=== PATIENT | female | born 1995 | race Caucasian/White ===

== ENCOUNTER 2018-09-10 03:01 | Emergency (ER) | payer OTHER ==
[2018-09-10] MEDS ORDERED: DEXAMETHASONE 4 MG TABLET PO ONE (04:50)
[2018-09-10] MEDS ORDERED: HYDROCODONE/ACETAMINOPHEN 7.5-325 MG TABLET PO ONE (04:50)
[2018-09-10] MEDS ORDERED: ONDANSETRON 4 MG TAB.RAPDIS PO ONE (04:50)
--- NOTE | 2018-09-10 04:54 | ER Document Report ---
HPI - HPI Patient complains to provider of: sore throat Time Seen by Provider: 09/10/18 03:51 Pain Level: 4 Context: Patient is a 22-year-old female presents to the emergency department with generalized sore throat, cough, congestion, nausea, body aches, subjective fever for the last 24 hours. Patient states she did present to an urgent care today and had a negative strep test and a negative flu test. Patient states she was given a prescription for prednisone and amoxicillin. States she was given amoxicillin because her throat was "really red." Patient states she has not taken any [id number] Tylenol or Motrin for her generalized body aches. Patient states she has not taken any of the prednisone but did take 1 dose of the amoxicillin. . Patient is currently denying any abdominal pain states some minor urinary frequency but denies any dysuria. Patient states she does feel nauseated at this time. Past medical history: None Medications: None Allergies: None Last menstrual period: 2 weeks ago - REPRODUCTIVE Reproductive: DENIES: : Past Medical History - General Information source: Patient - Social History Smoking Status: Never Smoker Family History: Reviewed & Not Pertinent Vertical Provider Document - CONSTITUTIONAL Agree With Documented VS: Yes Notes: GENERAL: Alert, interacts well. No acute distress. HEAD: Normocephalic, atraumatic. EYES: Pupils equal, round, and reactive to light. Extraocular movements intact. ENT: Oral mucosa moist, tongue midline. Nares patent, TM's intact, nonerythematous, nonbulging bilaterally. Pharynx erythematous, tonsils +2 bilaterally with no palatal petechiae or exudate noted NECK: Full range of motion. Supple. Trachea midline. Minor cervical lymphadenopathy noted bilaterally LUNGS: Clear to auscultation bilaterally, no wheezes, rales, or rhonchi. No respiratory distress. HEART: Regular rate and rhythm. No murmur ABDOMEN: Soft, non-tender. Non-distended. Bowel sounds present in all 4 quadrants. EXTREMITIES: Moves all 4 extremities spontaneously. No edema, normal radial and dorsalis pedis pulses bilaterally. No cyanosis. BACK: no cervical, thoracic, lumbar midline tenderness. No saddle anesthesia, normal distal neurovascular exam. No CVA tenderness bilaterally NEUROLOGICAL: Alert and oriented x3. Normal speech. cranial nerves II through XII grossly intact. PSYCH: Normal affect, normal mood. SKIN: Warm, dry, normal turgor. No rashes or lesions noted. Patient does appear to have a cold sore on the right bottom lip. - INFECTION CONTROL TRAVEL OUTSIDE OF THE [place] IN LAST 30 DAYS: No Course - Re-evaluation Re-evalutation: 09/10/18 06:16 After treatments in the emergency room department patient states she overall feels better. She is no longer nauseated is able to p.o. fluids with no vomiting. Patient's urine shows no signs of infection. Discussed continued treatment modalities prescribed by the urgent care and follow-up with your primary care provider in the next 24-48 hours. Close return precautions discussed. - Vital Signs Vital signs: Temp Pulse Resp BP Pulse Ox 99.0 F 116 H 16 123/89 H 99 09/10/18 03:07 09/10/18 03:07 09/10/18 03:07 09/10/18 03:07 09/10/18 03:07 Discharge - Discharge Clinical Impression: Nausea, Sore throat Upper respiratory infection Qualifiers: URI type: unspecified viral URI Qualified Code(s): J06.9 - Acute upper respiratory infection, unspecified Condition: Stable Disposition: HOME, SELF-CARE Instructions: Upper Respiratory Illness ([facility]), Viral Syndrome ([facility]), Sore Throat ([facility]), Nausea or Vomiting, Nonspecific ([facility]) Additional Instructions: As we discussed you have been seen and treated in the emergency department for your nausea, sore throat, generalized body aches. It is likely that you have a an upper respiratory infection caused by a virus. Please take medications prescribed by urgent care as prescribed. Please also take prescription Zofran as needed for nausea or vomiting. Please make sure he stay well-hydrated and follow-up with your primary care provider in the next 24-48 hours. Please return to the emergency room for any other concerning symptoms. Prescriptions: Ondansetron [Zofran Odt 4 mg Tablet] 1 - 2 tab PO Q4H PRN #15 tab.rapdis PRN Reason: For Nausea/Vomiting
[2018-09-10 05:30] LABS: APPEARANCE,URINE SLIGHTLY-CLOUDY; BILIRUBIN,URINE NEGATIVE (NEGATIVE); COLOR,URINE YELLOW; GLUCOSE, URINE NEGATIVE (NEGATIVE); KETONES,URINE NEGATIVE (NEGATIVE); LEUKOCYTE ESTERASE,URINE NEGATIVE (NEGATIVE); NITRITE,URINE NEGATIVE (NEGATIVE); PROTEIN,URINE NEGATIVE (NEGATIVE); URINE SPECIFIC GRAVITY 1.015; UROBILINOGEN,URINE NEGATIVE mg/dL (<2.0)
[2018-09-10 06:31] VITALS: BP 100/68
== END 2018-09-10 06:31 | disposition home or self-care (01) ==
LOC: ER 03:01
DX: J02.9 Acute pharyngitis, unspecified (principal); J06.9 Acute upper respiratory infection, unspecified; R11.0 Nausea; M79.10 Myalgia, unspecified site; R50.9 Fever, unspecified
CPT/HCPCS: 99283; 81025; 81001; S0119